=== PATIENT | female | born 1995 | race African-American/Black ===

== ENCOUNTER 2016-05-14 06:37 | Emergency (ER) | payer SELFPAY ==
[~2016-05-14] VITALS: Ht 167.6 cm; Wt 63.5 kg
[2016-05-14 06:53] VITALS: BP 142/96
[2016-05-14 06:58] LABS: Urine RBC None Seen /hpf (0 - 4)
[2016-05-14 07:16] LABS: Basophils # (auto) 0.1 uL; Basophils % (auto) 0.7 % (0.0-2.0); DEFINITIVE VIEW TRANSMISSION; Eosinophils # (auto) 0 uL; Eosinophils % (auto) 0.5 % (0.0-7.0); Hematocrit 36.6 % (36.0-46.0); Hemoglobin 11.6 g/dL (12.2-16.2); Lymphocytes # (auto) 2.9 uL; Lymphocytes % (auto) 35.9 % (10.0-50.0); Mean Corpuscular Hemoglobin 25.3 pg (28.0-32.0); Mean Corpuscular Hgb Conc. 31.7 g/dL (32.0-36.0); Mean Corpuscular Volume 79.8 fL (80.0-100.0); Mean Platelet Volume 7.7 fL (7.4-10.4); Monocytes # (auto) 0.6 uL; Monocytes % (auto) 7.2 % (0.0-12.0); Neutrophils # (auto) 4.5 uL; Neutrophils % (auto) 55.7 % (37.0-80.0); Platelet Count (auto) 385 10^3/uL (140-450)
[2016-05-14 07:37] LABS: Albumin 3.8 g/dL (3.4-5.0); BUN/Creatinine Ratio 11.5; Calcium 8.8 mg/dL (8.5-10.1); Potassium 3.8 mmol/L (3.5-5.1)
[2016-05-14 07:39] LABS: Bilirubin, Total 0.6 mg/dL (0.2-1.0); Total Protein 7.5 g/dL (6.4-8.2)
[2016-05-14 08:05] LABS: Urine Bilirubin Negative (Negative); Urine Blood Negative /uL (Negative); Urine Color Yellow (Yellow); Urine Glucose Normal (Normal); Urine Ketone Negative (Negative); Urine Mucus FEW (None Seen); Urine Nitrite Negative (Negative); Urine Squamous Epithelial Cell MOD /hpf (<5); Urine Urobilinogen Normal (Negative)
== END 2016-05-14 09:29 | disposition left against medical advice (07) ==
LOC: ER 06:40
DX: R10.9 Unspecified abdominal pain (principal); R19.7 Diarrhea, unspecified; Z53.21 Procedure and treatment not carried out due to patient leaving prior to being seen by health care provider
CPT/HCPCS: 36415; 80053; 81001; 82150; 83690; 84702; 85025; 85049